=== PATIENT | female | born 1955 | race Caucasian/White ===

== ENCOUNTER 2016-10-02 16:41 | Emergency (ER) | payer BC ==
[~2016-10-02] VITALS: Ht 154.9 cm; Wt 84.1 kg
[~2016-10-02 16:41] MED LIST: HYDROCODON-ACE1 EAC7 PO
[2016-10-02 18:00] VITALS: BP 174/84
== END 2016-10-02 18:02 | disposition home or self-care (01) ==
LOC: EME 16:41
DX: I10 Essential (primary) hypertension (principal); R60.0 Localized edema; Z87.891 Personal history of nicotine dependence
CPT/HCPCS: 99281; 99283